=== PATIENT | male | born 1970 ===

== ENCOUNTER 2023-11-10 03:07 | Day surgery (SDC) | payer OTHER ==
[~2023-11-10 03:07] MED LIST: ALBU90OI INH; SPIRIVA RESPIMAT4 G2 IH; TAMS.4ER PO
[2023-11-10] MEDS ORDERED: Lidocaine HCl 4% Cream 5 GM ONE (08:02)
== END 2023-11-10 23:06 | disposition home or self-care (01) ==
LOC: WOUND 03:07
DX: S91.002A Unspecified open wound, left ankle, initial encounter (principal); T81.30XA Disruption of wound, unspecified, initial encounter; J45.909 Unspecified asthma, uncomplicated; Z88.0 Allergy status to penicillin; X58.XXXA Exposure to other specified factors, initial encounter
CPT/HCPCS: A6213; A9270; G0463

== ENCOUNTER 2023-11-17 02:21 | Day surgery (SDC) | payer OTHER ==
[2023-11-17] MEDS ORDERED: Lidocaine HCl 4% Cream 5 GM ONE (08:02)
== END 2023-11-17 23:12 | disposition home or self-care (01) ==
LOC: WOUND 02:21
DX: T81.31XD Disruption of external operation (surgical) wound, not elsewhere classified, subsequent encounter (principal)
CPT/HCPCS: A6213; A9270; G0463

== ENCOUNTER 2023-11-24 02:49 | Day surgery (SDC) | payer OTHER ==
[2023-11-24] MEDS ORDERED: Lidocaine HCl 4% Cream 5 GM ONE (08:10)
== END 2023-11-24 22:36 | disposition home or self-care (01) ==
LOC: WOUND 02:49
DX: T81.30XD Disruption of wound, unspecified, subsequent encounter (principal); Y83.8 Other surgical procedures as the cause of abnormal reaction of the patient, or of later complication, without mention of misadventure at the time of the procedure
CPT/HCPCS: A6213; A9270

== ENCOUNTER 2023-12-01 05:37 | Day surgery (SDC) | payer OTHER | END 2023-12-01 22:35 | disposition home or self-care (01) | LOC: WOUND 05:37 | DX: T81.30XA Disruption of wound, unspecified, initial encounter (principal) | CPT/HCPCS: A6213; G0463 ==

== ENCOUNTER 2023-12-08 01:55 | Day surgery (SDC) | payer OTHER | END 2023-12-08 22:56 | disposition home or self-care (01) | LOC: WOUND 01:55 | DX: T81.30XD Disruption of wound, unspecified, subsequent encounter (principal); Y83.8 Other surgical procedures as the cause of abnormal reaction of the patient, or of later complication, without mention of misadventure at the time of the procedure | CPT/HCPCS: A6213; G0463 ==